=== PATIENT | female | born 1995 | race Caucasian/White ===

== ENCOUNTER 2020-10-22 00:13 | Emergency (ER) | payer OTHER ==
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
== END 2020-10-22 03:08 | disposition home or self-care (01) ==
LOC: FB.ED 00:13
DX: T74.21XA Adult sexual abuse, confirmed, initial encounter (principal); F17.210 Nicotine dependence, cigarettes, uncomplicated; Z88.2 Allergy status to sulfonamides
CPT/HCPCS: 99284